=== PATIENT | male | born 1985 | race Caucasian/White ===

== ENCOUNTER 2021-04-25 08:43 | Day surgery (SDC) | payer OTHER ==
[2021-04-24 08:52] VITALS: BMI 29.0
[~2021-04-25 08:43] MED LIST: LIDOCAINE 1% (10MG/ML) FOR IV START INTRADERMA PRN
[2021-04-25 09:10] VITALS: TEMP 97.3
[2021-04-25] MEDS: LACTATED RINGERS 1,000 ML IV SCH ×2 (09:10→09:35)
[2021-04-25] MEDS ORDERED: PROPOFOL 10 MG/ML 20 ML VIAL IV ONE (09:37)
[2021-04-25] MEDS ORDERED: LIDOCAINE 1% INJ 10MG/ML (20 ML MDV) ONE (09:37)
--- NOTE | 2021-04-25 10:02 | P.PCN ---
Date of Procedure: 04/25/21 Procedure(s) Performed: BRIEF HISTORY: Patient is a 35-year-old pleasant white male scheduled for an elective colonoscopy as a part of evaluation of acute recurrent diverticulitis for the last few years duration. His last was 2 months ago and was treated with antibiotics and doing well. PROCEDURE PERFORMED: Colonoscopy snare polypectomy. PREOPERATIVE DIAGNOSIS: History of acute recurrent diverticulitis. IV sedation per Anesthesia. PROCEDURE: After informed consent was obtained, the patient, was brought into the endoscopy unit. IV sedation was administered by Anesthesia under continuous monitoring. Digital rectal examination was normal. Initially the Olympus CF-160 flexible video colonoscope was then inserted in the rectum, gradually advanced into the cecum without any difficulty. Careful examination was performed as the scope was gradually being withdrawn. Ileocecal valve and the appendiceal orifice were visualized and appeared normal. Prep was excellent. There were multiple diverticulosis noted in the base of the cecum. Mucosa of the cecum, ascending colon, transverse colon, descending colon, was normal. In the sigmoid colon there was a 1 cm pedunculated polyp removed by snare polypectomy. In the rectum there were 2 polyps measuring 5 cm in size removed by snare polypectomy. Scattered left-sided diverticulosis seen. sigmoid colon, and rectum appeared normal. Retroflexion was performed in the rectum and no lesions were seen. The patient tolerated the procedure well. IMPRESSION: Scattered diffuse diverticulosis more predominant in the cecum and ascending colon 1 cm sigmoid colon; polyp status post polypectomy 5 mm sessile distal rectal polyp status post polypectomy RECOMMENDATIONS: Findings of this examination were discussed with the patient as well as his family. He was advised to follow with the biopsy results. If the biopsy results and he can have a repeat colonoscopy in 5 years.
[2021-04-25 10:37] VITALS: BP 129/86; PULSE 80; RESP 20
== END 2021-04-25 10:48 | disposition home or self-care (01) ==
LOC: ORWHC2ENDO 08:43
PROVIDERS: ATTEND Internal Medicine Gastroenterology
DX: K57.30 Diverticulosis of large intestine without perforation or abscess without bleeding (principal); K62.1 Rectal polyp; D12.5 Benign neoplasm of sigmoid colon
CPT/HCPCS: 45385; 88305; J2001; J2704